=== PATIENT | female | born 2000 | race Caucasian/White ===

== ENCOUNTER 2018-03-07 23:14 | Emergency (ER) | payer OTHER ==
[~2018-03-07] VITALS: Ht 172.7 cm; Wt 63.5 kg
[2018-03-07] MEDS ORDERED: NOHOMEMEDICATIONS (23:53)
[2018-03-08 00:23] LABS: ABSOLUTE NEUTROPHILS 7.8 thou/uL (1.4-8.2); BASOPHILS 0.3 % (0.0-2.0); CALCIUM 9.3 mg/dL (8.5-10.1); CREATININE 0.9 mg/dL (0.6-1.0); EOSINOPHILS 0.3 % (0.0-3.0); HEMATOCRIT 39.7 % (37.0-47.0); HEMOGLOBIN 13.5 gm/dL (12.0-15.0); LYMPHOCYTES 8.7 % (24.0-44.0); MCH 29.6 pg (26.0-34.0); MONOCYTES 8.5 % (1.0-8.0); PLATELET COUNT 200 thou/uL (150-400); POLYS 82.2 % (36.0-66.0); POTASSIUM 3.8 mmol/L (3.5-5.1); RBC 4.56 mil/uL (4.20-5.00); RDW 15.3 % (10.5-14.5); WBC 9.5 thou/uL (4.0-11.0)
[2018-03-08 00:28] LABS: ALBUMIN 4.4 g/dL (3.4-5.0); DIRECT BILIRUBIN 0.1 mg/dL (<0.1-0.3); TOTAL BILIRUBIN 0.5 mg/dL (<0.1-1.0); TOTAL PROTEIN 8.6 g/dL (6.4-8.2)
[2018-03-08 02:21] LABS: URINE BILIRUBIN NEGATIVE (Negative); URINE BLOOD 1+ (Negative); URINE CLARITY CLEAR; URINE COLOR YELLOW; URINE GLUCOSE-RANDOM* NEGATIVE (Negative); URINE KETONES NEGATIVE (Negative); URINE LEUKOCYTES-REFLEX NEGATIVE (Negative); URINE NITRITE-REFLEX NEGATIVE (Negative); URINE PROTEIN (DIPSTICK) NEGATIVE (Negative); URINE SPECIFIC GRAVITY 1.025 (1.005-1.035); URINE UROBILINOGEN 0.2 E.U./dl (0.2-1.0)
[2018-03-08 02:48] LABS: CASTS None Seen /LPF (None Seen); MUCUS 0-3 Light strn/LPF (None Seen); SQUAMOUS 4-10 Moderate /LPF (0-3); URINE RBC 3-10 Few /HPF (0-2); URINE WBC-REFLEX None Seen /HPF (0-5)
[2018-03-08 02:49] LABS: AMORPHOUS URATES Many /LPF (None Seen); BACTERIA-REFLEX None Seen /HPF (None Seen); CRYSTALS None Seen /LPF (None Seen)
[2018-03-08 03:50] VITALS: BP 110/70
[2018-03-09] MEDS ORDERED: NORCO 5-325 TA1 EACH PO (09:19)
[2018-03-09] MEDS ORDERED: ZOFRAN4 MG PO (09:19)
== END 2018-03-08 03:50 | disposition home or self-care (01) ==
LOC: ER 23:14
PROVIDERS: Emergency Medicine
DX: K37 Unspecified appendicitis (principal); R19.7 Diarrhea, unspecified

== ENCOUNTER 2018-03-08 14:12 | Inpatient (IN) | payer OTHER ==
[~2018-03-08] VITALS: Ht 170.2 cm; Wt 63.5 kg
--- NOTE | ~2018-03-08 | PATH ---
[facility] [address] [place] [address] PATHOLOGY RPT PROCEDURE Name: LANA KHALIL Room #: 449-I [facility] .R.#: [id number] Admission: 03/08/18 Date of : 89 Discharge: 03/09/18 Report #: [id number] Path Case #: [id number] [facility] Accession Number: [id number] . 01 Material submitted: . APPENDIX . 01 Clinical history: . Acute appendicitis . 02 Diagnosis: Appendix, appendectomy: - Moderate acute appendicitis. . (IUV:mml; 03/10/18) [facility]/03/10/2018 . 02 Electronically signed: . Kati Perez MD, Pathologist NPI- [id number] . 01 Gross description: . The specimen is received in formalin, labeled "Lana Khalil, appendix". Received is a vermiform appendix measuring 6.9 cm in length by up to 0.9 cm in diameter with a moderate amount of attached mesoappendix. The serosal surface is pale ty to pink-ty and glistening in appearance. The surgical margin is inked. Sectioning reveals a patent lumen filled with blood-tinged fluid. The specimen is submitted representatively in cassettes A1 and A2, with the proximal margin and bisected tip submitted in cassette A1. (CAA; 03/09/2018) QAC/QAC . 02 Pathologist provided ICD-10: K35.80 . 02 CPT . 333416 Performed at: [address], [place] [id number] MD Russell Giron MD Phone: [phone] Performed at: [address] [id number] MD Kati Perez MD Phone: [phone]
[~2018-03-08 14:12] MED LIST: NOHOMEMEDICATIONS
[2018-03-08 14:16] VITALS: BP 123/69
[2018-03-08 14:51] LABS: HEMATOCRIT 35.9 % (37.0-47.0); HEMOGLOBIN 12.2 gm/dL (12.0-15.0); MCH 29.5 pg (26.0-34.0); MCV 86.7 fL (80.0-100.0); PLATELET COUNT 161 thou/uL (150-400); RBC 4.14 mil/uL (4.20-5.00); RDW 15.2 % (10.5-14.5); WBC 4.9 thou/uL (4.0-11.0)
[2018-03-08 14:59] LABS: CREATININE 0.9 mg/dL (0.6-1.0); POTASSIUM 3.8 mmol/L (3.5-5.1)
[2018-03-08 15:04] VITALS: BP 123/69
[2018-03-08 15:15] LABS: ABSOLUTE NEUTROPHILS 3.1 thou/uL (1.4-8.2)
[2018-03-08 15:45] VITALS: BP 104/69
[2018-03-08 19:05] VITALS: BP 85/44
[2018-03-09 03:21] VITALS: BP 115/70
[2018-03-09 07:44] VITALS: BP 118/75
[2018-03-09] MEDS ORDERED: NORCO 5-325 TA1 EACH PO (09:19)
[2018-03-09] MEDS ORDERED: ZOFRAN4 MG PO (09:19)
[2018-03-09 10:01] VITALS: BP 118/75
[2018-03-09 10:46] VITALS: BP 110/63
== END 2018-03-09 12:18 | disposition home or self-care (01) | DRG 343 ==
LOC: ER 14:12 → EROBS 14:39 → 4W 14:39 → ENTRNSPT 03-09 12:12 → EDTRNSPTSTS 03-09 12:14 → 4W 03-09 12:18
PROVIDERS: Physician Assistant
PROC: 0DTJ4ZZ Resection of Appendix, Percutaneous Endoscopic Approach (ICD-10-PCS; principal; 2018-03-09)
DX: K35.80 Unspecified acute appendicitis (principal); F12.90 Cannabis use, unspecified, uncomplicated; F17.210 Nicotine dependence, cigarettes, uncomplicated; Z79.899 Other long term (current) drug therapy
CPT/HCPCS: 10040; 50010; 50101; 50249; 50411; 50555; 50558; 50739; 50740; 51975; 52265; 53307; 53310; 54022; 54118; 56525; 56526; 62110; 62900; 70005

== ENCOUNTER 2018-10-29 16:55 | Emergency (ER) | payer OTHER ==
[~2018-10-29] VITALS: Ht 172.7 cm; Wt 68.0 kg
[~2018-10-29 16:55] MED LIST changes: +NORCO 5-325 TA1 EACH PO; +ZOFRAN4 MG PO
[2018-10-29 17:19] LABS: URINE BILIRUBIN NEGATIVE (Negative); URINE BLOOD TRACE (Negative); URINE COLOR YELLOW; URINE GLUCOSE-RANDOM* NEGATIVE (Negative); URINE KETONES 3+ (Negative); URINE LEUKOCYTES-REFLEX TRACE (Negative); URINE NITRITE-REFLEX NEGATIVE (Negative); URINE PROTEIN (DIPSTICK) TRACE (Negative); URINE SPECIFIC GRAVITY >= 1.030 (1.005-1.035); URINE UROBILINOGEN 0.2 E.U./dl (0.2-1.0)
[2018-10-29 17:23] LABS: SSA (PROTEIN CONFIRMATORY) NEGATIVE (Negative); URINE CLARITY HAZY
[2018-10-29 17:25] LABS: ABSOLUTE NEUTROPHILS 6.6 thou/uL (1.4-8.2); BASOPHILS 0.2 % (0.0-2.0); EOSINOPHILS 0.1 % (0.0-3.0); HEMOGLOBIN 12.8 gm/dL (12.0-15.0); LYMPHOCYTES 14.1 % (24.0-44.0); MCH 30.2 pg (26.0-34.0); MCHC 33.7 g/dL (28.0-37.0); MCV 89.5 fL (80.0-100.0); MONOCYTES 4.4 % (1.0-8.0); PLATELET COUNT 206 thou/uL (150-400); POLYS 81.2 % (36.0-66.0); RBC 4.25 mil/uL (4.20-5.00); RDW 13.5 % (10.5-14.5); WBC 8.2 thou/uL (4.0-11.0)
[2018-10-29 17:34] LABS: CALCIUM 9.5 mg/dL (8.5-10.1); CREATININE 0.7 mg/dL (0.6-1.0); POTASSIUM 3.9 mmol/L (3.5-5.1)
[2018-10-29 17:39] LABS: ALBUMIN 4.6 g/dL (3.4-5.0); TOTAL BILIRUBIN 1.5 mg/dL (<0.1-1.0); TOTAL PROTEIN 8.3 g/dL (6.4-8.2)
[2018-10-29] MEDS ORDERED: PHENERGAN 25 MG25 M1 PO ×2 (18:04)
[2018-10-29] MEDS ORDERED: VITAFOL-OB+DHA1 EACH PO (18:04)
[2018-10-29 18:36] VITALS: BP 113/53
== END 2018-10-29 18:50 | disposition home or self-care (01) ==
LOC: ER 16:55
PROVIDERS: Physician Assistant
DX: O99.280 Endocrine, nutritional and metabolic diseases complicating pregnancy, unspecified trimester (principal); O21.8 Other vomiting complicating pregnancy; O99.330 Smoking (tobacco) complicating pregnancy, unspecified trimester; Z98.890 Other specified postprocedural states; Z3A.00 Weeks of gestation of pregnancy not specified

== ENCOUNTER 2018-10-31 15:19 | Emergency (ER) | payer OTHER ==
[~2018-10-31] VITALS: Ht 172.7 cm; Wt 68.0 kg
[~2018-10-31 15:19] MED LIST changes: +PHENERGAN 25 MG25 M1 PO; +VITAFOL-OB+DHA1 EACH PO
[2018-10-31 15:51] LABS: URINE BILIRUBIN NEGATIVE (Negative); URINE BLOOD NEGATIVE (Negative); URINE CLARITY CLEAR; URINE COLOR YELLOW; URINE GLUCOSE-RANDOM* NEGATIVE (Negative); URINE KETONES 3+ (Negative); URINE LEUKOCYTES-REFLEX TRACE (Negative); URINE NITRITE-REFLEX NEGATIVE (Negative); URINE PROTEIN (DIPSTICK) TRACE (Negative); URINE SPECIFIC GRAVITY >= 1.030 (1.005-1.035)
[2018-10-31 16:07] LABS: ABSOLUTE NEUTROPHILS 7.2 thou/uL (1.4-8.2); BASOPHILS 0.2 % (0.0-2.0); EOSINOPHILS 0.1 % (0.0-3.0); HEMATOCRIT 35.6 % (37.0-47.0); HEMOGLOBIN 12.1 gm/dL (12.0-15.0); LYMPHOCYTES 15.6 % (24.0-44.0); MCH 30.4 pg (26.0-34.0); MCHC 33.9 g/dL (28.0-37.0); MCV 89.5 fL (80.0-100.0); MONOCYTES 5.6 % (1.0-8.0); PLATELET COUNT 203 thou/uL (150-400); POLYS 78.5 % (36.0-66.0); RBC 3.98 mil/uL (4.20-5.00); RDW 13.4 % (10.5-14.5); WBC 9.2 thou/uL (4.0-11.0)
[2018-10-31 16:21] LABS: CALCIUM 9.2 mg/dL (8.5-10.1); CREATININE 0.6 mg/dL (0.6-1.0); POTASSIUM 3.5 mmol/L (3.5-5.1)
[2018-10-31] MEDS ORDERED: ZOFRAN ODT4 MG PO (19:52)
[2018-10-31 20:11] VITALS: BP 122/64
== END 2018-10-31 20:15 | disposition home or self-care (01) ==
LOC: ER 15:19
PROVIDERS: Student in an Organized Health Care Education/Training Program
DX: O26.892 Other specified pregnancy related conditions, second trimester (principal); Z3A.22 22 weeks gestation of pregnancy; R11.2 Nausea with vomiting, unspecified

== ENCOUNTER 2018-11-22 23:11 | Emergency (ER) | payer OTHER ==
[~2018-11-22] VITALS: Ht 172.7 cm; Wt 68.0 kg
[~2018-11-22 23:11] MED LIST changes: +ZOFRAN ODT4 MG PO
[2018-11-22 23:48] LABS: URINE BILIRUBIN 1+ (Negative); URINE BLOOD NEGATIVE (Negative); URINE CLARITY CLOUDY; URINE COLOR YELLOW; URINE GLUCOSE-RANDOM* NEGATIVE (Negative); URINE KETONES TRACE (Negative); URINE LEUKOCYTES-REFLEX TRACE (Negative); URINE NITRITE-REFLEX NEGATIVE (Negative); URINE PROTEIN (DIPSTICK) NEGATIVE (Negative); URINE SPECIFIC GRAVITY 1.025 (1.005-1.035); URINE UROBILINOGEN 0.2 E.U./dl (0.2-1.0)
[2018-11-23] MEDS ORDERED: ZOFRAN4 MG PO (00:01)
[2018-11-23 00:11] VITALS: BP 103/64
== END 2018-11-23 00:12 | disposition home or self-care (01) ==
LOC: ER 23:11
PROVIDERS: Student in an Organized Health Care Education/Training Program
DX: O21.0 Mild hyperemesis gravidarum (principal); O99.331 Smoking (tobacco) complicating pregnancy, first trimester; F17.210 Nicotine dependence, cigarettes, uncomplicated; Z3A.09 9 weeks gestation of pregnancy; Z76.0 Encounter for issue of repeat prescription

== ENCOUNTER 2018-12-20 22:41 | Emergency (ER) | payer MEDICAID ==
[~2018-12-20] VITALS: Ht 172.7 cm; Wt 68.0 kg
[2018-12-20] MEDS ORDERED: ZOFRAN ODT4 MG PO (23:30)
[2018-12-20 23:49] VITALS: BP 106/61
== END 2018-12-20 23:51 | disposition home or self-care (01) ==
LOC: ER 22:41
DX: R11.2 Nausea with vomiting, unspecified (principal); Z76.0 Encounter for issue of repeat prescription; F17.210 Nicotine dependence, cigarettes, uncomplicated; Z90.49 Acquired absence of other specified parts of digestive tract